=== PATIENT | male | born 1935 | race Caucasian/White ===

== ENCOUNTER 2016-11-26 08:14 | Inpatient (IN) | payer MEDICARE, SELFPAY ==
[2016-11-26 09:16] LABS: EOSINOPHIL 4.3 % (0-7); HCT 42.1 % (42.0-52.0); HGB 13.6 g/dl (13.2-18.0); LYMPHOCYTE 18.6 % (15-48); MCH 32.4 pg (25.0-31.0); MCHC 32.3 g/dL (32.0-36.0); MCV 100.2 fL (78.0-100.0); MONOCYTE 10.6 % (0-12); MPV 9.5 fL (6.0-9.5); NEUTROPHIL 65.5 % (41-80); PLT 324 K/uL (150-400); RDW 13.6 % (11.5-14.0); WBC 8.9 K/uL (4.0-10.5)
[2016-11-26 09:35] LABS: ALBUMIN 4.1 g/dL (3.4-4.8); BILIRUBIN - TOTAL 0.3 mg/dL (0.1-1.0); CREATININE 0.7 mg/dL (0.7-1.2); GLOBULIN (CALCULATION) 3.4 g/dL (2.2-4.2); TOTAL PROTEIN 7.5 g/dL (6.4-8.3)
[2016-11-26 09:42] LABS: INR 1.04 (0.9-1.2); PROTHROMBIN TIME 13.2 SECONDS (11.7-14.0); PTT 31.6 SECONDS (23.2-31.4)
[2016-11-27 10:23] LABS: BASOPHIL 0.7 % (0-2); EOSINOPHIL 3.7 % (0-7); HCT 40.4 % (42.0-52.0); HGB 13.3 g/dl (13.2-18.0); MCH 32.7 pg (25.0-31.0); MCHC 32.9 g/dL (32.0-36.0); MCV 99.3 fL (78.0-100.0); MONOCYTE 8.7 % (0-12); MPV 9.5 fL (6.0-9.5); NEUTROPHIL 66.9 % (41-80); PLT 281 K/uL (150-400); RBC 4.07 M/uL (4.70-6.00); RDW 13.6 % (11.5-14.0); WBC 8.4 K/uL (4.0-10.5)
[2016-11-27 10:45] LABS: CREATININE 0.7 mg/dL (0.7-1.2); MAGNESIUM 2.01 mg/dL (1.40-2.10); POTASSIUM 3.9 mmol/L (3.5-5.1)
[2016-11-28 05:44] LABS: HGB 13.3 g/dl (13.2-18.0); MCH 32.6 pg (25.0-31.0); MCHC 33.3 g/dL (32.0-36.0); MPV 9.7 fL (6.0-9.5); RBC 4.08 M/uL (4.70-6.00); RDW 13.6 % (11.5-14.0); WBC 9.1 K/uL (4.0-10.5)
[2016-11-28 06:12] LABS: CREATININE 0.7 mg/dL (0.7-1.2)
[2016-11-28] MEDS ORDERED: ATROVENT (00.2 MG/ML PO (16:38)
[2016-11-28] MEDS ORDERED: BISOPROLOL FUMAR5 MG PO (16:38)
[2016-11-28] MEDS ORDERED: LOVASTATIN20 MG PO (16:38)
[2016-11-28] MEDS ORDERED: PROTONIX 40MG T40 MG PO (16:38)
[2016-11-28] MEDS ORDERED: MUCINEX600 MG PO (16:39)
== END 2016-11-28 16:49 | disposition home or self-care (01) | DRG 378 ==
LOC: FER 08:14 → FTCU 09:55 → FMS 11-27 14:25
PROVIDERS: Emergency Medicine; Surgery; ADMIT Internal Medicine
PROC: 0DB68ZX Excision of Stomach, Via Natural or Artificial Opening Endoscopic, Diagnostic (ICD-10-PCS; principal; 2016-11-27 08:30)
DX: K92.2 Gastrointestinal hemorrhage, unspecified (principal); R04.2 Hemoptysis; J44.9 Chronic obstructive pulmonary disease, unspecified; I10 Essential (primary) hypertension; I25.10 Atherosclerotic heart disease of native coronary artery without angina pectoris; F17.210 Nicotine dependence, cigarettes, uncomplicated; J45.909 Unspecified asthma, uncomplicated; K21.9 Gastro-esophageal reflux disease without esophagitis; E78.5 Hyperlipidemia, unspecified; G89.29 Other chronic pain; M25.519 Pain in unspecified shoulder; J98.4 Other disorders of lung; K44.9 Diaphragmatic hernia without obstruction or gangrene; Z95.5 Presence of coronary angioplasty implant and graft; Z79.82 Long term (current) use of aspirin; Z79.899 Other long term (current) drug therapy
CPT/HCPCS: 36415; 71010; 71275; 80048; 80053; 83735; 85025; 85610; 85730; 86850; 86900; 86901; 88305; 93005; 94640; C9113; J2543; J2704; Q9967

== ENCOUNTER 2021-07-16 14:12 | Day surgery (SDCO) | payer MEDICARE ==
[~2021-07-16] VITALS: Ht 182.9 cm; Wt 74.9 kg
[~2021-07-16 14:12] MED LIST: ALDACTONE25 MG PO; AMOXICILLIN500 M2 PO; ASPIRIN EC81 MG PO; ATROVENT (00.2 MG/ML PO; AUGMENTIN 875-1 EACH PO; BISOPROLOL FUMAR5 M1 PO; BISOPROLOL FUMAR5 MG PO; BREO ELLIPTA 11 EACH INH; BROVANA15 MCG/2 M INH; BROVANA15 MCG/2 M NEB; CIPRO500 MG PO; DULERA 200 MCG8.8 GM INH; DUONEB 2.5-0.5M1 AMP INH; DUONEB 2.5-0.5M1 AMP NEB; LASIX20 MG PO; LEVAQUIN500 MG PO; LEVAQUIN750 MG PO; LOVASTATIN20 MG PO; MACROBID100 MG PO; MICON-GUARD 2% TOP; MUCINEX 600MG600 MG PO; MUCINEX600 MG PO; PHENERGAN6.25 MG/5 PO; PREDNISONE 10MG10 MG PO; PREDNISONE 20MG20 MG PO; PREDNISONE20 MG PO; PREDNISONE5 MG PO; PRINIVIL10 MG PO; PROTONIX 40MG T40 MG PO; TAMIFLU 75MG CA75 MG PO; TESSALON PERLE100 M1 PO; ULTRA-LIGHT RO1 EACH XX; VENTOLIN (2.5 MG/3 M INH; ZITHROMAX500 MG PO; ZPAK PO
[2021-07-16 15:54] LABS: BASOPHIL 0.8 % (0-2); HGB 11.2 g/dl (13.2-18.0); LYMPHOCYTE 17.4 % (15-48); MCHC 31.1 g/dL (32.0-36.0); MCV 99.7 fL (78.0-100.0); MONOCYTE 8.7 % (0-12); MPV 9.3 fL (6.0-9.5); NEUTROPHIL 68.5 % (41-80); NRBC 0; PLT 271 K/uL (150-400); RBC 3.61 M/uL (4.70-6.00); RDW 12.2 % (11.5-14.0); WBC 10.7 K/uL (4.0-10.5)
[2021-07-16 16:09] LABS: BUN/CREAT RATIO (CALC) 22.5 RATIO; CREATININE 1.11 mg/dL (0.67-1.17); POTASSIUM 4.1 mmol/L (3.5-5.1)
[2021-07-16 18:10] LABS: CORONAVIRUS 2019 SARS-COV-2 NEGATIVE (NEGATIVE); INFLUENZA A NAA NEGATIVE (NEGATIVE)
[2021-07-16 18:12] LABS: IRON % SATURATION 14.8 %SAT (20-50)
[2021-07-16 18:46] LABS: BILIRUBIN NEGATIVE (NEGATIVE); BLOOD TRACE-INTACT Ery/uL (NEGATIVE); CLARITY CLEAR (CLEAR); COLOR YELLOW (YELLOW); GLUCOSE (U) NORMAL (NORMAL); LEUKOCYTES 3+ Leu/uL (NEGATIVE); NITRITE POSITIVE (NEGATIVE); PROTEIN NEGATIVE (NEGATIVE)
[2021-07-16 18:48] LABS: BACTERIA 3+; URINARY WBC TNTC
[2021-07-16] MEDS ORDERED: PEPCID AC20 MG PO (23:35)
[2021-07-16] MEDS ORDERED: KEFLEX250 MG PO (23:38)
[2021-07-17 05:08] LABS: BILIRUBIN NEGATIVE (NEGATIVE); BLOOD TRACE-INTACT Ery/uL (NEGATIVE); CLARITY CLOUDY (CLEAR); COLOR YELLOW (YELLOW); GLUCOSE (U) NORMAL (NORMAL); LEUKOCYTES 2+ Leu/uL (NEGATIVE); NITRITE POSITIVE (NEGATIVE); PROTEIN TRACE (LOW) mg/dL (NEGATIVE)
[2021-07-17 05:09] LABS: BACTERIA 3+; URINARY WBC TNTC
[2021-07-17 06:23] LABS: EOSINOPHIL 3.7 % (0-7); HCT 34.3 % (42.0-52.0); HGB 10.8 g/dl (13.2-18.0); LYMPHOCYTE 17.3 % (15-48); MCH 30.7 pg (25.0-31.0); MCHC 31.5 g/dL (32.0-36.0); MCV 97.4 fL (78.0-100.0); MONOCYTE 8.5 % (0-12); MPV 9.4 fL (6.0-9.5); NRBC 0; PLT 271 K/uL (150-400); RBC 3.52 M/uL (4.70-6.00); RDW 12.2 % (11.5-14.0); WBC 11.2 K/uL (4.0-10.5)
[2021-07-17 06:44] LABS: BUN/CREAT RATIO (CALC) 22.3 RATIO; CREATININE 0.94 mg/dL (0.67-1.17); POTASSIUM 3.6 mmol/L (3.5-5.1)
--- NOTE | 2021-07-17 13:30 | NUR ---
07/17/21 Mr. Olea is oriented to name and , not place or time. Per telephone conversation with son, Jose Harmon, . Mr. Olea lives at home with his spouse. He has a a rw and quad cane. HH is not current. Family had hoped for SNF placement. However, Mr. Olea is refusing. He will return home. A referral was made to [facility] per Mr. Harmon's choice. - Mr. Harmon was educated to the guardianship process.
[2021-07-17] MEDS ORDERED: ACETAMINOPHEN325 MG PO (13:49)
[2021-07-17] MEDS ORDERED: MACROBID100 MG PO (13:57)
== END 2021-07-17 15:39 | disposition home health service (06) ==
LOC: FER 14:12 → FMS 16:39
PROVIDERS: Nurse Practitioner Family; ADMIT Family Medicine
DX: R53.1 Weakness (principal); N39.0 Urinary tract infection, site not specified; D53.9 Nutritional anemia, unspecified; S42.021A Displaced fracture of shaft of right clavicle, initial encounter for closed fracture; F03.90 Unspecified dementia, unspecified severity, without behavioral disturbance, psychotic disturbance, mood disturbance, and anxiety; J44.9 Chronic obstructive pulmonary disease, unspecified; I11.0 Hypertensive heart disease with heart failure; I50.9 Heart failure, unspecified; Z91.041 Radiographic dye allergy status; Z87.891 Personal history of nicotine dependence; Z66 Do not resuscitate; Z20.822 Contact with and (suspected) exposure to COVID-19; X58.XXXA Exposure to other specified factors, initial encounter
CPT/HCPCS: 36415; 71045; 73030; 73502; 80048; 81001; 82550; 82607; 83540; 83550; 84443; 84484; 85025; 87076; 87088; 87186; 93005; 97162; 97166; 97530-GP; 97535; G0378; J1650; J7030; U0002

== ENCOUNTER 2021-07-31 08:44 | Emergency (ER) | payer MEDICARE ==
[~2021-07-31 08:44] MED LIST changes: +ACETAMINOPHEN325 MG PO; +KEFLEX250 MG PO; +PEPCID AC20 MG PO
[2021-07-31 11:47] LABS: BILIRUBIN NEGATIVE (NEGATIVE); BLOOD NEGATIVE Ery/uL (NEGATIVE); COLOR YELLOW (YELLOW); GLUCOSE (U) NORMAL (NORMAL); LEUKOCYTES 3+ Leu/uL (NEGATIVE); NITRITE POSITIVE (NEGATIVE); PROTEIN NEGATIVE (NEGATIVE); SPECIFIC GRAVITY <=1.005 (1.001-1.030); UROBILINOGEN 0.2 mg/dL (0.2-1.0)
[2021-07-31 11:52] LABS: CLARITY HAZY (CLEAR)
[2021-07-31 12:04] LABS: BACTERIA 1+; URINARY WBC 20-50
[2021-07-31 12:07] LABS: BASOPHIL 1.7 % (0-2); HCT 32.1 % (42.0-52.0); LYMPHOCYTE 21.2 % (15-48); MCH 30.6 pg (25.0-31.0); MCHC 31.2 g/dL (32.0-36.0); MCV 98.2 fL (78.0-100.0); MONOCYTE 8.1 % (0-12); MPV 9.2 fL (6.0-9.5); NEUTROPHIL 58.5 % (41-80); NRBC 0; PLT 251 K/uL (150-400); RBC 3.27 M/uL (4.70-6.00); RDW 12.9 % (11.5-14.0); WBC 8.4 K/uL (4.0-10.5)
[2021-07-31 12:21] LABS: ALBUMIN 2.9 g/dL (3.4-5.0); BILIRUBIN - TOTAL 0.2 mg/dL (0.2-1.0); BUN/CREAT RATIO (CALC) 20.8 RATIO; CREATININE 0.96 mg/dL (0.67-1.17); GLOBULIN (CALCULATION) 3.8 g/dL; POTASSIUM 3.1 mmol/L (3.5-5.1); TOTAL PROTEIN 6.7 g/dL (6.4-8.2)
[2021-07-31] MEDS ORDERED: CIPRO500 MG PO (13:43)
--- NOTE | 2021-07-31 15:18 | NUR ---
07/31/21 The family requested [facility] placement from the ED. [facility] had been in conversation with the family and agreed to accept him today.
== END 2021-07-31 15:40 | disposition home or self-care (01) ==
LOC: FER 08:44
PROVIDERS: Emergency Medicine
DX: Z04.3 Encounter for examination and observation following other accident (principal); N39.0 Urinary tract infection, site not specified; F03.90 Unspecified dementia, unspecified severity, without behavioral disturbance, psychotic disturbance, mood disturbance, and anxiety
CPT/HCPCS: 36415; 71045; 72170; 80053; 81001; 84484; 85025; 87076; 87088; 87186; 93005